=== PATIENT | male | born 1950 | race Caucasian/White ===

== ENCOUNTER 2016-07-19 08:34 | Outpatient (CLI) | payer MEDICARE ==
[2016-07-19 12:30] LABS: Hemoglobin A1c 5.5 % (4.0-6.0)
== END 2016-07-19 08:35 ==
LOC: NAVSJIPCSP 08:34
PROVIDERS: ATTEND Internal Medicine
DX: E78.5 Hyperlipidemia, unspecified (principal); E11.9 Type 2 diabetes mellitus without complications; Z79.899 Other long term (current) drug therapy
CPT/HCPCS: 36415; 80061; 83036

== ENCOUNTER 2016-10-24 10:58 | Outpatient (CLI) | payer MEDICARE ==
[2016-10-24 12:28] LABS: Hemoglobin A1c 5.7 % (4.0-6.0)
[2016-10-24 12:48] LABS: Cardiac Risk 5.6 (Less than 4.5)
== END 2016-10-24 10:59 | disposition home or self-care (01) ==
LOC: NAVSJIPCSP 10:58
PROVIDERS: ATTEND Internal Medicine
DX: E11.9 Type 2 diabetes mellitus without complications (principal); E78.5 Hyperlipidemia, unspecified
CPT/HCPCS: 36415; 80061; 83036

== ENCOUNTER 2017-01-25 09:30 | Outpatient (CLI) | payer MEDICARE ==
[2017-01-25 12:34] LABS: Hemoglobin A1c 5.8 % (4.0-6.0)
[2017-01-25 13:07] LABS: ALT (SGPT) 26 U/L (8-55); AST (SGOT) 20 U/L (5-34); Albumin 4.6 g/dL (3.4-4.8); Alkaline Phosphatase 81 U/L (40-150); Bilirubin, Direct 0.3 mg/dL (0.1-0.3); Bilirubin, Total 0.7 mg/dL (0.2-1.2); Cardiac Risk 4.2 (Less than 4.5); Cholesterol 127 mg/dl (< 200 Desired); HDL Cholesterol 30 mg/dL (>60 Neg Risk); LDL Cholesterol, Calculated 71 mg/dL; Triglycerides 131 mg/dL (Less than 150)
== END 2017-01-25 09:31 | disposition home or self-care (01) ==
LOC: NAVSJIPCSP 09:30
PROVIDERS: ATTEND Internal Medicine
DX: E11.9 Type 2 diabetes mellitus without complications (principal); E78.5 Hyperlipidemia, unspecified; Z79.899 Other long term (current) drug therapy
CPT/HCPCS: 36415; 80061; 80076; 83036